=== PATIENT | male | born 1950 | race Caucasian/White ===

== ENCOUNTER → 2020-10-15 | Outpatient (CLI) | payer MEDICARE, BC ==
[~2020-10-15] MED LIST: GASTROGRAFIN SOLUTION 30ML (Q9963) As Ordered ONE; ISOVUE-370 76% 100ML VIAL As Ordered ONE
--- NOTE | 2020-10-15 17:06 | REP ---
INDICATION: LUNG NODULES / ABD PAIN W/ H/O RENAL CYST. COMPARISON: 10/31/2019. TECHNIQUE: CT chest performed following the intravenous administration of 100 cc of Isovue 370. Sagittal and coronal reconstruction images are performed. FINDINGS: Lungs: There is a stable 4 mm nodule in the medial right upper lobe on image 33. There is a stable subpleural 5 mm nodular density posteromedially on image 40. Mild linear thickening along the minor fissure is stable. There is a stable 4 mm nodule in the right lower lobe posteriorly on image 56. Another is seen on image 76. On the left there is some minimal linear scarring. Mediastinum: No adenopathy. Abril: No adenopathy. Axilla: No adenopathy. Pleura: No effusion. Heart: Not enlarged. Thoracic aorta: No aneurysm or dissection. Visualized osseous structures: There are degenerative changes of the spine with a few stable chronic compression deformities of thoracic vertebral bodies. IMPRESSION: Stable subcentimeter nodules right lung as discussed above. Recommend follow-up CT in 1 year. <Electronically signed by Haris Grimaldo > 10/15/20 [id number]
--- NOTE | 2020-10-15 17:21 | REP ---
INDICATION: LUNG NODULES / ABD PAIN W/ H/O RENAL CYST COMPARISON: 03/29/2017. TECHNIQUE: CT Scan of the abdomen was performed without and with intravenous administration of 100 cc of Isovue 370, with oral contrast. Sagittal and coronal reconstruction images are performed. FINDINGS: Liver: Normal Gallbladder: Prior cholecystectomy. Spleen: Normal. Adrenals: Normal. Pancreas: Normal. Kidneys: There are multiple benign nonenhancing cysts of the kidneys. In the right upper pole there is a 1 cm cyst. There is also an exophytic cyst 7.4 cm in diameter, on the prior CT in 2017 it was 6.1 cm. A dominant cyst in the right lower pole measures 6.4 cm in maximum diameter, previously 5.1 cm. There is a 1 cm cyst in the posterior mid right kidney. In the upper pole the left kidney there is a stable 1.6 cm cyst. There is a 9 mm hypodensity in the mid left kidney which is too small to characterize but probably represents a new small cyst. There is also stable 8 mm cystic structure in the lower pole the left kidney. There is no hydronephrosis bilaterally. There is a 3 mm calcification in the mid left renal collecting system. Subcentimeter cortical hyperdensity in the upper pole of the left kidney probably represents a tiny hyperdense cyst. Small and large bowel: There are multiple diverticula of the left colon with no evidence of inflammatory change of the visualized bowel loops. Free fluid: None. Abdominal aorta: No aneurysm or dissection. Adenopathy: None. Osseous structures: There are degenerative changes of the spine. IMPRESSION: Multiple renal cysts demonstrate benign characteristics as discussed above. <Electronically signed by Haris Grimaldo > 10/15/20 [id number]
== END ==
LOC: M RAD 14:07
PROVIDERS: ATTEND Family Medicine
DX: R91.8 Other nonspecific abnormal finding of lung field (principal); R10.9 Unspecified abdominal pain
CPT/HCPCS: 71260; 74170; Q9963; Q9967

== ENCOUNTER → 2021-10-01 | Outpatient (CLI) | payer MEDICARE, BC | LOC: M WUC 14:36 | PROVIDERS: ATTEND Physician Assistant Medical | DX: M79.632 Pain in left forearm (principal) ==

== ENCOUNTER → 2021-11-16 | Outpatient (CLI) | payer MEDICARE, BC | LOC: M WUC 13:01 | PROVIDERS: ATTEND Physician Assistant | DX: R07.1 Chest pain on breathing (principal) ==

== ENCOUNTER 2022-02-08 20:34 | Emergency (ER) | payer MEDICARE, BC ==
[~2022-02-08] VITALS: Ht 182.9 cm; Wt 86.6 kg
[2022-02-08] MEDS ORDERED: guaiFENesin ER 600 MG TAB PO SCH (21:00)
[2022-02-08] MEDS ORDERED: COMBIVENT RESPIMAT 100-20MCG INHALER 4GM INH SCH (21:45)
[2022-02-08] MEDS ORDERED: BENZONATATE 100MG CAPSULE PO ONE (21:45)
[2022-02-08 22:10] LABS: VENOUS HCO3 23.8 MEQ/L (23.0-27.0); VENOUS O2 SATURATION 96.2 % (60.0-80.0); VENOUS PARTIAL PRESSURE CO2 33.3 mmHg (38.0-50.0); VENOUS PARTIAL PRESSURE O2 77.8 mmHg (30.0-50.0); VENOUS PH 7.472 UNITS (7.330-7.430); VENOUS STANDARD HCO3 25.3 MEQ/L; VENOUS TOTAL CO2 24.8 MEQ/L (24.0-28.0)
[2022-02-08 22:15] LABS: BASO % 0.3 % (0.0-1.0); EOS # 0.1 10^3/uL (0.0-0.5); EOS % 0.7 % (0.0-3.0); HEMATOCRIT 43.9 % (42.0-52.0); HEMOGLOBIN 15.7 g/dl (13.5-17.5); LYMPH # 1.5 10^3/uL (1.5-5.0); LYMPH % 19.7 % (24.0-44.0); MEAN CORPUSCULAR HEMOGLOBIN 30.3 pg (27.0-33.0); MEAN CORPUSCULAR HGB CONC 35.8 g/dl (32.0-36.5); MEAN CORPUSCULAR VOLUME 84.6 fl (80.0-96.0); MONO # 0.7 10^3/uL (0.0-0.8); MONO % 9.1 % (2.0-8.0); NEUTROPHILS # 5.2 10^3/uL (1.5-8.5); NEUTROPHILS % 69.8 % (36.0-66.0); PLATELET COUNT, AUTOMATED 315 10^3/uL (150-450); RED BLOOD COUNT 5.19 10^6/uL (4.30-6.10); WHITE BLOOD COUNT 7.5 10^3/uL (4.0-10.0)
[2022-02-08 22:49] LABS: CK-MB VALUE MASS 2.2 NG/ML (<3.6); MB/CK RELATIVE INDEX 2.29 (< OR =4)
[2022-02-09] MEDS ORDERED: BENZ200C70 PO (00:01)
[2022-02-09] MEDS ORDERED: MUCI1TAB16 PO (00:01)
[2022-02-09] MEDS ORDERED: HYDR-3363 PO (00:01)
[2022-02-09] MEDS ORDERED: PROAAER10 INH (00:01)
[2022-02-09 00:10] VITALS: BP 136/82
== END 2022-02-09 00:11 | disposition home or self-care (01) ==
LOC: M ED 20:34
DX: U07.1 COVID-19 (principal); R91.8 Other nonspecific abnormal finding of lung field; K57.30 Diverticulosis of large intestine without perforation or abscess without bleeding; I10 Essential (primary) hypertension; I48.92 Unspecified atrial flutter; F17.200 Nicotine dependence, unspecified, uncomplicated

== ENCOUNTER → 2024-01-11 | Outpatient (CLI) | payer MEDICARE ==
[~2024-01-11] MED LIST changes: +BENZ200C70 PO; -GASTROGRAFIN SOLUTION 30ML (Q9963) As Ordered ONE; +HYDR-3363 PO; -ISOVUE-370 76% 100ML VIAL As Ordered ONE; +MUCI1TAB16 PO; +PROAAER10 INH
== END ==
LOC: M EKG 11:01
PROVIDERS: ATTEND Internal Medicine Cardiovascular Disease
DX: I49.3 Ventricular premature depolarization (principal); I44.0 Atrioventricular block, first degree

== ENCOUNTER → 2024-09-20 | Outpatient (CLI) | payer MEDICARE, BC | LOC: M EKG 10:12 | PROVIDERS: ATTEND Registered Nurse | DX: I49.3 Ventricular premature depolarization (principal) ==

== ENCOUNTER → 2024-10-11 | Outpatient (REF) | payer MEDICARE, BC | LOC: M LAB REF 11:50 | PROVIDERS: ATTEND Family Medicine | DX: I49.3 Ventricular premature depolarization (principal) ==

== ENCOUNTER 2025-04-30 15:26 | Emergency (ER) | payer MEDICARE, BC ==
[~2025-04-30] VITALS: Ht 185.4 cm; Wt 87.8 kg
[2025-04-30] MEDS ORDERED: SPIR-10 (15:39)
[2025-04-30] MEDS ORDERED: FLEC25TA (15:39)
[2025-04-30] MEDS ORDERED: TAMS1CAP17 (15:39)
[2025-04-30] MEDS ORDERED: CHLO125TA (15:39)
[2025-04-30] MEDS ORDERED: ATOR1TAB19 (15:39)
[2025-04-30 16:32] LABS: BASO # 0.0 10^3/uL (0.0-0.2); BASO % 0.4 % (0.0-1.0); EOS # 0.1 10^3/uL (0.0-0.5); EOS % 1.2 % (0.0-3.0); LYMPH # 1.1 10^3/uL (1.5-5.0); LYMPH % 19.8 % (24.0-44.0); MONO # 0.5 10^3/uL (0.0-0.8); MONO % 9.6 % (2.0-8.0); NEUTROPHILS # 3.9 10^3/uL (1.5-8.5); NEUTROPHILS % 68.8 % (36.0-66.0); PLATELET COUNT, AUTOMATED 245 10^3/uL (150-450)
[2025-04-30 17:09] LABS: ALT/SGPT 33.0 U/L (7.0-40); AST/SGOT 23.0 U/L (<34)
[2025-04-30 18:57] VITALS: BP 156/91; TEMP 97.3; O2SAT 97
== END 2025-04-30 19:00 | disposition home or self-care (01) ==
LOC: M ED 15:26
DX: R10.32 Left lower quadrant pain (principal); I10 Essential (primary) hypertension; N40.0 Benign prostatic hyperplasia without lower urinary tract symptoms; Z88.1 Allergy status to other antibiotic agents; Z91.09 Other allergy status, other than to drugs and biological substances; Z91.041 Radiographic dye allergy status; Z79.899 Other long term (current) drug therapy